=== PATIENT | female | born 1975 | race Caucasian/White ===

== ENCOUNTER 2016-09-26 09:29 | Emergency (ER) | payer BC ==
[~2016-09-26] VITALS: Ht 180.3 cm; Wt 67.5 kg
[2016-09-26 09:32] VITALS: Ht 180.3 cm; Wt 67.5 kg
[2016-09-26 10:32] LABS: ADD UMIC YES; UR BILIRUBIN (Dip) NEGATIVE (NEGATIVE); UR BLOOD (Dip) 3+ (NEGATIVE); UR CLARITY CLEAR (CLEAR); UR COLOR LT. YELLOW (YELLOW); UR GLUCOSE (Dip) NEGATIVE (NEGATIVE); UR KETONES (Dip) NEGATIVE (NEGATIVE); UR LEUKOCYTE ESTERASE (Dip) 1+ (NEGATIVE); UR NITRITE (Dip) NEGATIVE (NEGATIVE); UR TOTAL PROTEIN (Dip) TRACE (NEGATIVE); UR UROBILINOGEN (Dip) 0.2 E.U./dL (0.1-1.0)
--- NOTE | 2016-09-26 10:39 | ERD ---
ER Documentation Chief Complaint Date/Time DATE: 09/26/16 TIME: 10:37 Chief Complaint Complains of right lower quadrant x 3 days worse last night HPI This is a 41-year-old female presenting to the emergency department complaining of right-sided pelvic pain for the past couple days. Patient states that the pain is dull, comes and goes and rates it 6 out of 10. Patient states that she did start her menstrual period yesterday however she states that she feels as if her pain is coming from her ovary. Patient admits to having nausea, denies fever, vomiting, diarrhea, constipation. Patient states that she is trying to get with her and she is unsure if she is or not. Patient states the pain was worse last night. She denies decreased appetite, dysuria ROS All systems reviewed and are negative except as per history of present illness. Medications Home Meds Active Scripts Ibuprofen* (Ibuprofen*) 400 Mg Tablet, 400 MG PO Q6H Y for PAIN, #30 TAB Prov:TIMOTHY RON PA-C 09/26/16 Allergies Allergies: Coded Allergies: neomycin (Verified Allergy, Intermediate, Itch, 09/26/16) PMhx/Soc Medical and Surgical Hx: pt denies Medical Hx, pt denies Surgical Hx Physical Exam Vitals Vital Signs Date Time Temp Pulse Resp B/P Pulse Ox O2 Delivery O2 Flow Rate FiO2 09/26/16 09:32 98.3 71 20 112/72 100 Physical Exam GENERAL: well-developed/well-nourished, in no apparent distress, non-toxic appearing HENT: NC/AT, moist mucous membranes EYES: Conjunctiva normal NECK: Supple, no lymphadenopathy PULM: CTA bilaterally, no rales, rhonchi, or wheezing heard CV: Normal S1S2, RRR, good capillary refill GI: Soft, non-distended, mild tender to palpation right pelvic region Normal bowel sounds, no masses or organomegaly felt on exam No gross peritonitis, no bruits Negative Rovsing, negative Dobson, negative McBurney's point, Negative CVAT BACK: No masses EXT: No clubbing, cyanosis, or edema NEURO: Alert and Orientated SKIN: Intact, normal turgor PSYCH: Normal mood and mentation Results 24 hrs Laboratory Tests Test 09/26/16 10:06 Urine Color LT. YELLOW Urine Clarity CLEAR Urine pH 7.5 Urine Specific [place] 1.010 Urine Ketones NEGATIVE Urine Nitrite NEGATIVE Urine Bilirubin NEGATIVE Urine Urobilinogen 0.2 E.U./dL Urine Leukocyte Esterase 1+ Urine Microscopic RBC >50/HPF Urine Microscopic WBC 2-5/HPF Urine Epithelial Cells FEW Urine Bacteria FEW Urine Hemoglobin 3+ Urine Glucose NEGATIVE% Urine Total Protein TRACE Procedures/MDM 41-year-old female presents to the emergency department complaining of right- sided pelvic pain for the past couple days, likely due to a right paraovarian cyst. Patient also currently started her menstrual period yesterday. There was no evidence of ruptured ovarian cyst, ovarian torsion, appendicitis. Patient has stable vital signs, she appears well and does not appear to be in significant pain when palpating her abdomen. Urine test was negative. Urinalysis showed +1 leukocyte esterase, this may be a dirty catch. I have sent her urine culture out Pelvic ultrasound was done and radiologist stated: 1.7 x 1.3 cm paraovarian cyst adjacent to the right ovary. The remainder of the study is unremarkable. I discussed with patient that she is suitable to follow-up with her [facility] [employer] as an outpatient. Patient is stable to be discharged home. Discussed return to the ER for any worsening signs or symptoms. She understands and agrees with plan Departure Diagnosis: Primary Impression: Pelvic pain Additional Impression: Ovarian cyst Condition: Stable TIMOTHY RON PA-C Sep 26, 2016 10:39
[2016-09-26 11:01] LABS: UR BACTERIA FEW; URINE RBCS >50 /HPF (0)
--- NOTE | 2016-09-26 11:30 | RADRPT ---
PROCEDURE: US Pelvis. CLINICAL INDICATION: Right lower quadrant pain. TECHNIQUE: Multiple sonographic images of the pelvis were obtained utilizing a transabdominal and endovaginal technique. The images were reviewed on a PACS workstation. COMPARISON: None available. FINDINGS: The uterus is visualized and measures 8.1 x 4.3 x 4.9 cm. The endometrial echo complex is normal and measures 7.5 mm. There is no evidence for free fluid. The right ovary has a normal echotexture and measures 4.7 x 2.0 x 2.2 cm. The left ovary has a normal echotexture and measures 4.4 x 1.8 x 2.2 c m. There is a 1.7 x 1.3 cm paraovarian cyst adjacent to the right ovary. No adnexal masses are noted . IMPRESSION: 1. 1.7 x 1.3 cm paraovarian cyst adjacent to the right ovary. The remainder of the study is unremar kable. RPTAT: [facility] Physician Arsenio Date Time Electronically viewed and signed by Physician Arsenio on 09/26/2016 11:30 /
[2016-09-26] MEDS ORDERED: IBUP400T22 PO (11:47)
== END 2016-09-26 12:11 | disposition home or self-care (01) ==
LOC: FTE 09:29
DX: R10.2 Pelvic and perineal pain (principal); N83.201 Unspecified ovarian cyst, right side
CPT/HCPCS: 76830; 76856; 81001; 87086